=== PATIENT | male | born 1990 | race Two or more races ===

== ENCOUNTER 2023-12-15 21:31 | Emergency (ER) | payer MEDICAID ==
[~2023-12-15] VITALS: Ht 175.3 cm; Wt 89.4 kg
[2023-12-15 22:46] VITALS: BP 111/63; TEMP 98; O2SAT 99
[2023-12-15] MEDS ORDERED: ASPI-992 PO (23:11)
[2023-12-15] MEDS ORDERED: ASPI-1169 PO (23:45)
== END 2023-12-16 00:05 | disposition home or self-care (01) ==
LOC: ER 21:33
DX: E78.5 Hyperlipidemia, unspecified (principal); Z76.0 Encounter for issue of repeat prescription